=== PATIENT | male | born 1965 ===

== ENCOUNTER 2020-01-08 20:17 | Emergency (ER) | payer BC ==
[~2020-01-08] VITALS: Ht 177.8 cm; Wt 72.6 kg
[2020-01-08] MEDS ORDERED: SEROQUEL25 MG PO (20:59)
[2020-01-08] MEDS ORDERED: PROVENTIL HFA6.7 GM INH (21:02)
[2020-01-08] MEDS ORDERED: LITHIUM CARBON300 M2 PO (21:04)
[2020-01-08] MEDS ORDERED: CIALIS10 MG PO (21:05)
== END 2020-01-08 21:55 | disposition left against medical advice (07) ==
LOC: ED 20:17
DX: Z53.21 Procedure and treatment not carried out due to patient leaving prior to being seen by health care provider (principal)